=== PATIENT | male | born 1960 | race Caucasian/White ===

== ENCOUNTER → 2017-09-23 | Outpatient (CLI) | payer BC | LOC: COL.RAD 07:29 | DX: R10.2 Pelvic and perineal pain (principal); Z85.038 Personal history of other malignant neoplasm of large intestine; Z98.890 Other specified postprocedural states | CPT/HCPCS: Q9967 ==

== ENCOUNTER 2020-12-08 16:23 | Emergency (ER) | payer BC ==
[~2020-12-08] VITALS: Ht 172.7 cm; Wt 92.7 kg
[2020-12-08 18:03] LABS: HEMATOCRIT 46.1 % (42.0-52.0); HEMOGLOBIN 15.7 g/dl (13.5-18.0); MEAN CELL VOLUME 88 fl (80.0-100.0); MEAN CORPUSCULAR HEMOGLOBIN 30 pg (27.0-31.0); MEAN CORPUSCULAR HGB CONC 34 g/dl (33.0-37.0); MEAN PLATELET VOLUME 9.3 fl (7.4-10.4); PLATELET COUNT 156 K/mm3 (130-400); RED BLOOD COUNT 5.25 M/mm3 (4.20-5.60)
[2020-12-08 18:17] LABS: ALANINE AMINOTRANSFERASE 55 U/L (4-49); ALBUMIN 3.6 gm/dL (3.5-5.0); ALKALINE PHOSPHATASE 67 U/L (50-136); ANION GAP 8 mmol/L (7-16); AST,SGOT 61 U/L (15-37); BILIRUBIN,TOTAL 0.5 mg/dL (0.0-1.0); BLOOD UREA NITROGEN 10 mg/dL (9-20); CALCIUM 8.5 mg/dL (8.4-10.2); CARBON DIOXIDE 26 mmol/L (22-30); CHLORIDE 100 mmol/L (98-107); CREATININE, serum 0.56 (0.66-1.25); GLUCOSE 134 mg/dL (74-106); POTASSIUM 3.8 mmol/L (3.4-5.0); SODIUM 134 mmol/L (137-145); TOTAL PROTEIN 6.6 gm/dL (6.4-8.2)
[2020-12-08 18:38] LABS: TROPONIN-I < 0.012 ng/mL (0.000-0.035)
[2020-12-08 18:40] LABS: BAND 5 % (0-10); BASOPHIL 1 % (0-2); LYMPHOCYTE 10 % (20.0-51.0); NEUTROPHILS 82 % (42.0-75.2); PLATELET ESTIMATE NORMAL (NORMAL)
[2020-12-08 19:03] LABS: C-REACTIVE PROTEIN 17.9 mg/dL (0.0-0.9)
[2020-12-08 20:15] VITALS: BP 130/91; PULSE 100; TEMP 98.1
== END 2020-12-08 20:15 | disposition home or self-care (01) ==
LOC: COL.ER 16:23
PROVIDERS: Nurse Practitioner Primary Care
DX: U07.1 COVID-19 (principal)
CPT/HCPCS: J1100; J7030; Q9967

== ENCOUNTER 2021-12-01 08:37 | Day surgery (SDC) | payer BC ==
[~2021-12-01] VITALS: Ht 172.7 cm; Wt 94.9 kg
[2021-12-01 09:06] VITALS: BP 120/77; PULSE 78; TEMP 97.6
[2021-12-01 10:30] VITALS: BP 110/75; PULSE 67
[2021-12-01 10:45] VITALS: BP 117/77; PULSE 68
[2021-12-01 11:00] VITALS: BP 123/81; PULSE 69
--- NOTE | 2021-12-01 11:10 | NUR ---
1030: Patient brought back into [facility] from endo procedure. Report received from FRANKLIN Hector. Patient vitally stable on room air. Denies pain or nausea. Requesting blueberry muffins and sprite. at bedside. Call light left within reach. 1045: Patient tolerating food and drink well. Denies pain or nausea. Vital signs stable on room air. Dr. Santana in to see patient. 1100: Patient meets discharge criteria. IV removed without complications. Went through discharge instructions with patient and . Questions answered. 1110: Patient got dressed and escorted to the patient entrance via wheelchair. Patient got into personal vehicle and left in the care of their family member.
== END 2021-12-01 11:10 | disposition home or self-care (01) ==
LOC: SDCO 08:37
DX: K62.1 Rectal polyp (principal); Z98.0 Intestinal bypass and anastomosis status; Z86.010 Personal history of colon polyps; Z85.038 Personal history of other malignant neoplasm of large intestine
CPT/HCPCS: J2704; J7120